=== PATIENT | female | born 1945 | race Caucasian/White ===

== ENCOUNTER 2017-01-29 09:49 | Emergency (ER) | payer MEDICARE ==
[~2017-01-29] VITALS: Ht 172.7 cm; Wt 135.2 kg
[2017-01-29 10:43] LABS: BASO % 1 % (0-3); EOS # 0.1 x10^3/uL (0.0-0.7); EOS % 1 % (0-3); HEMATOCRIT 43.7 % (36.0-47.0); HEMOGLOBIN 14.9 g/dL (12.0-15.5); LYMPH # 0.4 x10^3/uL (1.0-4.8); LYMPH % 8 % (24-48); MEAN CORPUSCULAR HEMOGLOBIN 30 pg (25-35); MEAN CORPUSCULAR HGB CONC 34 g/dL (31-37); MEAN CORPUSCULAR VOLUME 89 fL (79-100); MONO # 0.6 x10^3/uL (0.0-1.1); MONO % 12 % (0-9); NEUT # 4.4 x10^3uL (1.8-7.7); NEUT % 79 % (31-73); PLATELET COUNT 164 x10^3/uL (140-400); RED CELL DISTRIBUTION WIDTH 14.6 % (11.5-14.5); WHITE BLOOD COUNT 5.5 x10^3/uL (4.0-11.0)
--- NOTE | 2017-01-29 10:44 | RAD ---
Indication: Short of breath for one day. Technique: Upright portable chest radiograph was obtained. No comparison is available. Findings: Patient is rotated. Lungs are clear. Heart is not enlarged. There is no heart failure. Bony structures are intact. Impression: No active pulmonary disease.
[2017-01-29] MEDS ORDERED: methylPREDNISolone SOD SUCC PF 125 MG/2 ML VIAL. IV ONE (11:00)
[2017-01-29] MEDS ORDERED: IPRATROPIUM BROMIDE 0.5 MG/2.5 ML NEBU. NEB ONE (11:00)
[2017-01-29] MEDS ORDERED: ALBUTEROL SULFATE 2.5 MG/3 ML NEBU. CONT NEB ONE (11:00)
[2017-01-29 11:03] LABS: ALBUMIN 3.8 g/dL (3.4-5.0); ALBUMIN/GLOBULIN RATIO 1.1 (1.0-1.7); CALCIUM 8.6 mg/dL (8.5-10.1); CREATININE 0.9 mg/dL (0.6-1.0); GFR 61.9; POTASSIUM 3.8 mmol/L (3.5-5.1); TOTAL BILIRUBIN 0.4 mg/dL (0.2-1.0); TOTAL PROTEIN 7.4 g/dL (6.4-8.2)
--- NOTE | 2017-01-29 11:15 | ED.ADGEN ---
Past History Past Medical History: Other Past Surgical History: Hysterectomy, Knee Replacement, Other Alcohol Use: Rarely Drug Use: None Adult General Chief Complaint Chief Complaint Shortness of air HPI HPI Patient is a 71-year-old female presents with history of fragrance allergy who presents with shortness of breath, wheezing, mild tongue swelling after fragrance exposure yesterday afternoon. Patient was a room with family friend for a prolonged period of time when she developed a cough, later that evening upon returning home, she reported chest tightness, tongue swelling. Patient took 2 Benadryl with partial improvement. Symptoms persist this morning. No chest pain, chest heaviness, nausea vomiting or sweats. No hives, itching or rash. No other acute symptoms or complaints. Review of Systems Review of Systems Review symptoms as per history of present illness. All other review symptoms are negative. Current Medications Current Medications Current Medications Medications (Trade) Dose Ordered Sig/Christine Start Time Stop Time Status Last Admin Dose Admin Albuterol Sulfate (Ventolin) 5 mg 1X ONCE 01/29/17 11:00 01/29/17 11:02 DC Ipratropium [place] (Atrovent) 0.5 mg 1X ONCE 01/29/17 11:00 01/29/17 11:02 DC Methylprednisolone Sodium Succinate (Solu-Medrol 125mg Vial) 125 mg 1X ONCE 01/29/17 11:00 01/29/17 11:02 DC Allergies Allergies Allergies Coded Allergies Type Severity Reaction Last Updated Verified Penicillins Allergy Unknown 01/29/17 Yes Sulfa (Sulfonamide Antibiotics) Allergy Unknown 01/29/17 Yes iodine Allergy Unknown 01/29/17 Yes latex Allergy Unknown 01/29/17 Yes Physical Exam Physical Exam Constitutional: Well developed, well nourished, no acute distress, non-toxic appearance. HENT: Normocephalic, atraumatic, bilateral external ears normal, oropharynx moist, no oral pharyngeal swelling. Eyes: PERRLA, EOMI. Neck: Normal range of motion, no tenderness, supple. Cardiovascular:Heart rate regular rhythm, no murmur. Lungs & Thorax: Bilateral breath sounds clear to auscultation, mildly diminished bilaterally. Abdomen: Bowel sounds normal, soft, no tenderness. Skin: Warm, dry, no erythema, no rash. Back: No tenderness. Extremities: No tenderness. Neurologic: Alert and oriented X 3, normal motor function, normal sensory function, no focal deficits noted. Psychologic: Affect normal, judgement normal, mood normal. Current Patient Data Vital Signs Vital Signs Date Time Temp Pulse Resp B/P Pulse Ox O2 Delivery O2 Flow Rate FiO2 01/29/17 10:10 98.6 107 16 96 Room Air Lab Results Laboratory Tests Test 01/29/17 10:27 White Blood Count 5.5x10^3/uL (4.0-11.0) Red Blood Count 4.90x10^6/uL (3.50-5.40) Hemoglobin 14.9g/dL (12.0-15.5) Hematocrit 43.7% (36.0-47.0) Mean Corpuscular Volume 89fL (79-100) Mean Corpuscular Hemoglobin 30pg (25-35) Mean Corpuscular Hemoglobin Concent 34g/dL (31-37) Red Cell Distribution Width 14.6% (11.5-14.5) H Platelet Count 164x10^3/uL (140-400) Neutrophils (%) (Auto) 79% (31-73) H Lymphocytes (%) (Auto) 8% (24-48) L Monocytes (%) (Auto) 12% (0-9) H Eosinophils (%) (Auto) 1% (0-3) Basophils (%) (Auto) 1% (0-3) Neutrophils # (Auto) 4.4x10^3uL (1.8-7.7) Lymphocytes # (Auto) 0.4x10^3/uL (1.0-4.8) L Monocytes # (Auto) 0.6x10^3/uL (0.0-1.1) Eosinophils # (Auto) 0.1x10^3/uL (0.0-0.7) Basophils # (Auto) 0.0x10^3/uL (0.0-0.2) Sodium Level 139mmol/L (136-145) Potassium Level 3.8mmol/L (3.5-5.1) Chloride Level 103mmol/L (98-107) Carbon Dioxide Level 31mmol/L (21-32) Anion Gap 5 (6-14) L Blood Urea Nitrogen 13mg/dL (7-20) Creatinine 0.9mg/dL (0.6-1.0) Estimated GFR (Cockcroft-Gault) 61.9 BUN/Creatinine Ratio 14 (6-20) Glucose Level 105mg/dL (70-99) H Calcium Level 8.6mg/dL (8.5-10.1) Total Bilirubin 0.4mg/dL (0.2-1.0) Aspartate Amino Transferase (AST) 19U/L (15-37) Alanine Aminotransferase (ALT) 31U/L (14-59) Alkaline Phosphatase 104U/L (46-116) Creatine Kinase 93U/L (26-192) Troponin I Quantitative < 0.017ng/mL (0-0.055) FV-Nzs-M-Type Natriuretic Peptide 252pg/mL (0-124) H Total Protein 7.4g/dL (6.4-8.2) Albumin 3.8g/dL (3.4-5.0) Albumin/Globulin Ratio 1.1 (1.0-1.7) EKG EKG [EKG: Normal sinus rhythm, no acute ST-T wave changes.] Radiology/Procedures Radiology/Procedures [Chest x-ray: No acute cardiopulmonary disease per radiology report.] Impressions: Allergy with mild bronchospasms/asthma exacerbation without oral pharyngeal swelling Course & Med Decision Making Course & Med Decision Making Pertinent Labs and Imaging studies reviewed. (See chart for details) [Solu-Medrol, breathing treatments given treatment. Will continue current treatment with PCP follow-up. Return precautions reviewed. Final Impression Final Impression [1. Allergic reaction 2. Bronchospasm] Problems: Dragon Disclaimer Dragon Disclaimer This electronic medical record was generated, in whole or in part, using a voice recognition dictation system. BEBE LOREDO DO Jan 29, 2017 11:14
[2017-01-29 12:00] VITALS: BP 142/70
== END 2017-01-29 12:10 | disposition home or self-care (01) ==
LOC: ER 09:49
DX: T78.49XA Other allergy, initial encounter (principal); J98.01 Acute bronchospasm; Z88.0 Allergy status to penicillin; Z88.2 Allergy status to sulfonamides; Z91.041 Radiographic dye allergy status; Z91.040 Latex allergy status; X58.XXXA Exposure to other specified factors, initial encounter
CPT/HCPCS: 36415; 71010; 80053; 82550; 83880; 84484; 85027; 94644; 99285; J2930; J7613; J7644; 94640